=== PATIENT | female | born 1955 | race Caucasian/White ===

== ENCOUNTER 2020-09-04 09:02 | Emergency (ER) | payer BC, MEDICARE ==
[2020-09-04] MEDS ORDERED: Take Home: Acetaminophen/Codeine 300 MG/30 MG, 5 Tab Pack PO ONE ×2 (09:21→09:23)
--- NOTE | 2020-09-04 11:09 | EDM.PDOC ---
ED HPI GENERAL MEDICAL PROBLEM - General Chief Complaint: Lower Extremity Injury/Pain Stated Complaint: LT KNEE PAIN Time Seen by Provider: 09/04/20 09:15 Source of Information: Reports: Patient History Limitations: Reports: No Limitations - History of Present Illness INITIAL COMMENTS - FREE TEXT/NARRATIVE: Pt. presents to ER with complaints of L knee pain. Pt. states that she twisted while in a standing position at about 0500 this AM and started experiencing severe L knee pain. Pt. has a history of severe OA of the L knee (radiographs were done last week in fact) and pt. is planning to have the joint replaced sometime in the near future. Pt. denies any fall or accident involving the joint and states that she always has pain in this knee but now it is worse. She states that she has increased pain with ambulation. Pt. was able to bear weight. She walked into the ER from her car and into the exam room. Pt. denies any fever or chills. No redness. Onset: Today Onset Date: 09/04/20 Location: Reports: Lower Extremity, Left Quality: Reports: Sharp, Stabbing Severity: Severe Improves with: Reports: Rest Worsens with: Reports: Movement Left Posterior Knee Pain Score (Numeric/FACES): 5 - Related Data Allergies Allergy/AdvReac Type Severity Reaction Status Date / Time losartan Allergy Stomach Verified 09/04/20 09:18 Upset metformin Allergy Stomach Verified 09/04/20 09:18 Upset Home Meds: Home Meds Aspirin 81 mg PO DAILY 09/04/20 [History] Diclofenac Sodium [Voltaren] 75 mg PO BIDMEALS PRN 09/04/20 [History] Furosemide [Lasix] 20 mg PO DAILY 09/04/20 [History] Multivitamin 1 each PO DAILY 09/04/20 [History] Pioglitazone [Actos] 30 mg PO DAILY 09/04/20 [History] Simvastatin [Zocor] 20 mg PO BEDTIME 09/04/20 [History] carvediloL [Carvedilol] 6.25 mg PO BID 09/04/20 [History] lisinopriL [Lisinopril] 20 mg PO DAILY 09/04/20 [History] Past Medical History Cardiovascular History: Reports: High Cholesterol, Hypertension - Past Surgical History Musculoskeletal Surgical History: Reports: Knee Replacement Social & Family History - Tobacco Use Tobacco Use Status *Q: Never Tobacco User Review of Systems - Review of Systems Review Of Systems: See Below Musculoskeletal: Reports: Leg Pain (L knee. See HPI.) ED EXAM, GENERAL - Physical Exam Exam: See Below Exam Limited By: No Limitations General Appearance: Alert, WD/WN, No Apparent Distress Extremities: Leg Pain (Unable to fully assess joint due to discomfort/body habitus. Pain located in posterior of knee, radiates into L lower leg. No obvious jerry deformity noted.), Limited Range of Motion Course - Vital Signs Last Recorded V/S: Last Vital Signs Temp 36.6 C 09/04/20 09:08 Pulse 69 09/04/20 09:08 Resp 18 09/04/20 09:08 BP 173/60 H 09/04/20 09:08 Pulse Ox 98 09/04/20 09:08 - Orders/Labs/Meds Meds: Medications Discontinued Medications Generic Name Dose Route Start Last Admin Trade Name Frejudy PRN Reason Stop Dose Admin Acetaminophen/Codeine Phosphate 1 packet 09/04/20 09:21 09/04/20 09:39 Take Home: Acetaminophen/Codeine 300 Mg/30 Mg, 5 Tab Pack PO 09/04/20 09:22 1 packet ONETIME ONE Administration Acetaminophen/Codeine Phosphate 1 packet 09/04/20 09:23 09/04/20 09:39 Take Home: Acetaminophen/Codeine 300 Mg/30 Mg, 5 Tab Pack PO 09/04/20 09:24 1 packet ONETIME ONE Administration Departure - Departure Time of Disposition: 10:00 Disposition: Home, Self-Care 01 Clinical Impression: Left knee sprain - Discharge Information Instructions: Knee Sprain, Adult, [id number], Acetaminophen; Codeine tablets Referrals: PCP,None [Primary Care Provider] - Forms: ED Department Discharge Additional Instructions: Tylenol with codeine 1 tab every 4-6 hours as needed for pain Physical therapy will be on contact with you. Follow-up with Dr. Mast/Orthopedic surgery. Elevate leg, ice knee for 10-15 min every hour Use walker to help get around/offload weight from your knee. Sepsis Event Note (ED) - Evaluation Sepsis Screening Result: No Definite Risk - Focused Exam Vital Signs: Vital Signs Temp Pulse Resp BP Pulse Ox 09/04/20 09:08 36.6 C 69 18 173/60 H 98 - Problem List Review Problem List Initiated/Reviewed/Updated: Yes - Assessment/Plan Plan: Pt. was discharged. No radiographs were performed as there was no significant trauma. Advised to follow-up with PCP regarding ortho referral. Pt. was given a short course of tylenol 3 and was referred to physical therapy. Use walker to help with ambulation.
== END 2020-09-04 09:44 | disposition home or self-care (01) ==
LOC: VM.ED 09:02
DX: S83.92XA Sprain of unspecified site of left knee, initial encounter (principal); E78.00 Pure hypercholesterolemia, unspecified; I10 Essential (primary) hypertension; M19.90 Unspecified osteoarthritis, unspecified site; Z96.659 Presence of unspecified artificial knee joint; Z88.8 Allergy status to other drugs, medicaments and biological substances; Z79.82 Long term (current) use of aspirin; Z79.899 Other long term (current) drug therapy; X50.1XXA Overexertion from prolonged static or awkward postures, initial encounter; Y92.000 Kitchen of unspecified non-institutional (private) residence as the place of occurrence of the external cause
CPT/HCPCS: 99283; A9270-GY